=== PATIENT | male | born 1985 | race Hispanic/Latino ===

== ENCOUNTER 2022-03-25 13:52 | Emergency (ER) | payer OTHER ==
[~2022-03-25] VITALS: Ht 167.6 cm; Wt 104.3 kg
== END 2022-03-25 18:23 | disposition home or self-care (01) ==
LOC: ER 14:16
DX: R05.9 Cough, unspecified (principal); J06.9 Acute upper respiratory infection, unspecified; I10 Essential (primary) hypertension; E03.9 Hypothyroidism, unspecified; J38.00 Paralysis of vocal cords and larynx, unspecified; Q05.9 Spina bifida, unspecified; Z20.822 Contact with and (suspected) exposure to COVID-19
CPT/HCPCS: 71045; 87400; 99283; U0002

== ENCOUNTER 2024-10-29 15:10 | Observation (INO) | payer OTHER ==
[2024-10-29] VITALS (7 sets, daily range): BP systolic 110; BP diastolic 59; PULSE 57–105; RESP 16–20; TEMP 97.4–102.3; O2SAT 95–97
[~2024-10-29] VITALS: Ht 167.6 cm; Wt 108.9 kg
[2024-10-29 16:06] LABS: CORONAVIRUS COVID-19 AG POSITIVE (NEGATIVE)
[2024-10-29 16:14] LABS: BASOPHILS % 0.4 % (0.0-1.0); EOSINOPHILS % 0.7 % (0.0-6.0); LYMPHOCYTES % 11.8 % (18.0-39.1); MONOCYTES % 12.8 % (4.4-11.3); NEUTROPHILS % 73.9 % (38.7-80.0); RED CELL DISTRIBUTION WIDTH 13.9 % (11.7-14.4)
[2024-10-29 16:34] LABS: INR 1.19
[2024-10-29] MEDS ORDERED: ACETAMINOPHEN 325 MG TAB ONE (16:39)
[2024-10-29] MEDS: SODIUM CHLORIDE 0.9% 1000ML 1,910 ML IV SCH (16:40)
[2024-10-29] MEDS: ACETAMINOPHEN 325 MG TAB PO ONE (16:40)
[2024-10-29] MEDS: IBUPROFEN 600 MG TAB PO STA (16:40)
[2024-10-29 16:44] LABS: EST GLOMERULAR FILTRATION RATE 65.0 ML/MIN (>=60)
[2024-10-30] VITALS (10 sets, daily range): BP systolic 100–115; BP diastolic 60–75; PULSE 51–99; RESP 15–18; TEMP 97.1–98.5; O2SAT 87–99
[2024-10-30] MEDS ORDERED: METOPROLOL TART50 MG PO (04:02)
[2024-10-30] MEDS ORDERED: OXYBUTYNIN CHLOR5 MG PO (04:02)
[2024-10-30] MEDS ORDERED: LOSARTAN POTASS50 MG PO (04:02)
[2024-10-30] MEDS ORDERED: ESIDRIX25 MG PO (04:02)
[2024-10-30] MEDS ORDERED: LEVOTHYROXINE75 MCG PO (04:02)
[2024-10-30] MEDS ORDERED: PAXLOVID 150-11 EAC2 PO (13:24)
[2024-10-30] MEDS: DEXAMETHASONE 4 MG TAB PO ONE (20:23)
[2024-10-30] MEDS: NIRMATRELVIR PO SCH (21:00)
[2024-10-30] MEDS: [UNRECOGNIZED DRUG - OTHER] PO SCH (21:00)
[2024-10-30] MEDS: RITONAVIR PO SCH (21:00)
[2024-10-31] VITALS (7 sets, daily range): BP systolic 106–138; BP diastolic 66–89; PULSE 57–81; RESP 15–20; TEMP 97.7–98.6; O2SAT 96–99
[2024-10-31] MEDS: LEVOTHYROXINE SODIUM 75 MCG TAB PO SCH (06:49)
[2024-10-31] MEDS: DEXAMETHASONE 4 MG TAB PO SCH (09:32)
[2024-10-31] MEDS: OXYBUTYNIN CHLORIDE 5 MG TAB PO SCH (09:32)
[2024-10-31] MEDS ORDERED: DEXAMETHASONE4 MG PO (14:42)
[2024-10-31] MEDS ORDERED: PAXLOVID 300-11 EAC1 PO (14:42)
== END 2024-10-31 16:00 | disposition home health service (06) ==
LOC: ER 15:31 → ERHOLD 17:18 → MED/SURG2 19:51
PROVIDERS: ADMIT Internal Medicine; ATTEND Internal Medicine
DX: U07.1 COVID-19 (principal); J12.82 Pneumonia due to coronavirus disease 2019; R09.02 Hypoxemia; Z99.81 Dependence on supplemental oxygen; J38.00 Paralysis of vocal cords and larynx, unspecified; Z93.0 Tracheostomy status; Q05.9 Spina bifida, unspecified; G82.20 Paraplegia, unspecified; I10 Essential (primary) hypertension; G47.33 Obstructive sleep apnea (adult) (pediatric); E03.9 Hypothyroidism, unspecified
CPT/HCPCS: 36415; 71045; 80053; 83605; 85025; 85610; 85730; 87040; 93005; 94799; 99284; G0378; J7030